=== PATIENT | male | born 1950 | race Caucasian/White ===

== ENCOUNTER 2019-04-22 10:32 | Emergency (ER) | payer MEDICARE ==
[~2019-04-22] VITALS: Ht 182.9 cm; Wt 109.1 kg
[2019-04-22 10:39] VITALS: BP 142/71; PULSE 62; TEMP 97.6
[2019-04-22] MEDS ORDERED: FLEXERIL 1010 MG/TAB PO (11:04)
[2019-04-22] MEDS ORDERED: NEURONTIN300 MG/CAP PO (11:04)
[2019-04-22] MEDS ORDERED: LASIX 20MG TABL20 MG PO (11:05)
[2019-04-22] MEDS ORDERED: CELEXA 20MG20 MG/TAB (11:06)
== END 2019-04-22 11:37 | disposition home or self-care (01) ==
LOC: COL.ER 10:32
DX: M54.5 Low back pain (principal); I10 Essential (primary) hypertension
CPT/HCPCS: J1885

== ENCOUNTER → 2019-10-09 | Outpatient (CLI) | payer MEDICARE ==
[~2019-10-09] MED LIST: CELEXA 20MG20 MG/TAB; FLEXERIL 1010 MG/TAB PO; LASIX 20MG TABL20 MG PO; NEURONTIN300 MG/CAP PO
[2019-10-09 14:50] LABS: BASO # 0.1 (0.0-0.2); BASO % 0.9 % (0.0-2.0); EOS # 0.4 (0.0-0.7); EOS % 5.6 % (0-4.0); GRAN # 3.8 (1.4-6.5); HEMOGLOBIN 13.4 g/dl (13.5-18.0); LYMPH # 1.7 (1.2-3.4); LYMPH % 25.6 % (20.0-51.0); MEAN CELL VOLUME 95 fl (80.0-100.0); MEAN CORPUSCULAR HEMOGLOBIN 32 pg (27.0-31.0); MEAN CORPUSCULAR HGB CONC 34 g/dl (33.0-37.0); MEAN PLATELET VOLUME 9.6 fl (7.4-10.4); MONO # 0.8 (0.1-0.6); MONO % 11.6 % (1.7-9.3); PLATELET COUNT 192 K/mm3 (130-400); RED BLOOD COUNT 4.21 M/mm3 (4.20-5.60); REDCELL DISTRIBUTION WIDTH-CV 12.5 % (11.5-14.5)
[2019-10-09 15:00] LABS: ALBUMIN 4.2 gm/dL (3.5-5.0); BILIRUBIN,TOTAL 0.8 mg/dL (0.0-1.0); CALCIUM 9.6 mg/dL (8.4-10.2); CREATININE, serum 0.72 (0.66-1.25); POTASSIUM 4.1 mmol/L (3.4-5.0)
== END ==
LOC: COL.LAB 14:28
DX: R60.9 Edema, unspecified (principal)

== ENCOUNTER 2021-02-17 10:41 | Emergency (ER) | payer MEDICARE ==
[~2021-02-17] VITALS: Ht 182.9 cm; Wt 120.9 kg
[2021-02-17 10:53] VITALS: TEMP 98.3
[2021-02-17] MEDS ORDERED: ASPIRIN 81M81 MG/TA2 PO (11:13)
[2021-02-17] MEDS ORDERED: VITAMIND3 5000 PO (11:14)
[2021-02-17] MEDS ORDERED: VITAMIN B125000 MCG PO (11:14)
[2021-02-17] MEDS ORDERED: CELEXA 20MG20 MG/TAB PO (11:15)
[2021-02-17] MEDS ORDERED: CENTRUM SILVER1 CTB PO (11:15)
[2021-02-17] MEDS ORDERED: MAG-OX 400400 MG/TAB PO (11:16)
[2021-02-17] MEDS ORDERED: EUTHYROX25 MCG PO (11:16)
[2021-02-17] MEDS ORDERED: ARICEPT 5MG (11:16)
[2021-02-17] MEDS ORDERED: NAMENDA 10MG TA10 MG (11:17)
[2021-02-17] MEDS ORDERED: KLOR-CON20 MEQ PO (11:17)
[2021-02-17] MEDS ORDERED: IMITREX100 MG PO (11:17)
[2021-02-17 11:39] LABS: BASO # 0.1 K/mm3 (0.0-0.2); BASO % 0.8 % (0.0-2.0); EOS # 0.1 K/mm3 (0.0-0.7); EOS % 2.2 % (0-4.0); GRAN % 63.9 % (42.2-75.2); HEMATOCRIT 41.3 % (42.0-52.0); HEMOGLOBIN 13.9 g/dl (13.5-18.0); LYMPH # 1.4 K/mm3 (1.2-3.4); LYMPH % 22.6 % (20.0-51.0); MEAN CELL VOLUME 95 fl (80.0-100.0); MEAN CORPUSCULAR HEMOGLOBIN 32 pg (27.0-31.0); MEAN CORPUSCULAR HGB CONC 34 g/dl (33.0-37.0); MEAN PLATELET VOLUME 9.9 fl (7.4-10.4); MONO # 0.6 K/mm3 (0.1-0.6); MONO % 10.2 % (1.7-9.3); PLATELET COUNT 230 K/mm3 (130-400); RED BLOOD COUNT 4.33 M/mm3 (4.20-5.60); REDCELL DISTRIBUTION WIDTH-CV 12.5 % (11.5-14.5)
[2021-02-17 12:01] LABS: C-REACTIVE PROTEIN 0.05 mg/dL (0.00-0.50)
[2021-02-17 12:03] LABS: ERYTHROCYTE SEDIMENTATION RATE 18 mm/hr (0-30)
[2021-02-17 12:06] LABS: ALBUMIN 3.8 gm/dL (3.4-4.8); CALCIUM 9.9 mg/dL (8.4-10.2); CREATININE, serum 0.85 mg/dL (0.72-1.25); POTASSIUM 3.9 mmol/L (3.5-4.5); TOTAL PROTEIN 6.6 gm/dL (6.2-8.1)
[2021-02-17 13:28] LABS: BILIRUBIN,TOTAL 0.6 mg/dL (0.2-1.2)
[2021-02-17 14:42] VITALS: BP 114/71; PULSE 54
== END 2021-02-17 14:42 | disposition home or self-care (01) ==
LOC: COL.ER 10:41
PROVIDERS: Nurse Practitioner
DX: R51.9 Headache, unspecified (principal); Z87.891 Personal history of nicotine dependence
CPT/HCPCS: J1200; J1885; J2765; J7030; Q9967

== ENCOUNTER → 2021-03-17 | Outpatient (CLI) | payer MEDICARE ==
[~2021-03-17] MED LIST changes: +ARICEPT 5MG; +ASPIRIN 81M81 MG/TA2 PO; +CELEXA 20MG20 MG/TAB PO; +CENTRUM SILVER1 CTB PO; +EUTHYROX25 MCG PO; +IMITREX100 MG PO; +KLOR-CON20 MEQ PO; +MAG-OX 400400 MG/TAB PO; +NAMENDA 10MG TA10 MG; +VITAMIN B125000 MCG PO; +VITAMIND3 5000 PO
== END ==
LOC: COL.CARD 09:23
DX: G43.009 Migraine without aura, not intractable, without status migrainosus (principal); F03.91 Unspecified dementia, unspecified severity, with behavioral disturbance

== ENCOUNTER 2021-04-21 12:45 | Outpatient (RCR) | payer MEDICARE | END 2021-04-23 | disposition home or self-care (01) | LOC: WSST | DX: F03.91 Unspecified dementia, unspecified severity, with behavioral disturbance (principal); G43.009 Migraine without aura, not intractable, without status migrainosus; Z86.69 Personal history of other diseases of the nervous system and sense organs ==

== ENCOUNTER 2021-05-05 09:22 | Outpatient (RCR) | payer MEDICARE | END 2021-05-24 | disposition home or self-care (01) | LOC: WSST | DX: G43.009 Migraine without aura, not intractable, without status migrainosus (principal); F03.91 Unspecified dementia, unspecified severity, with behavioral disturbance; Z86.69 Personal history of other diseases of the nervous system and sense organs ==

== ENCOUNTER 2021-06-16 11:15 | Outpatient (RCR) | payer MEDICARE | END 2021-06-21 | disposition home or self-care (01) | LOC: WSST | DX: R41.841 Cognitive communication deficit (principal); F03.91 Unspecified dementia, unspecified severity, with behavioral disturbance; G43.009 Migraine without aura, not intractable, without status migrainosus ==

== ENCOUNTER 2021-08-09 13:00 | Outpatient (RCR) | payer MEDICARE | END 2021-08-21 | disposition home or self-care (01) | LOC: WSST | DX: R41.841 Cognitive communication deficit (principal); G43.009 Migraine without aura, not intractable, without status migrainosus; F03.91 Unspecified dementia, unspecified severity, with behavioral disturbance; Z86.69 Personal history of other diseases of the nervous system and sense organs ==

== ENCOUNTER 2021-09-07 13:00 | Outpatient (RCR) | payer MEDICARE | END 2021-09-21 | disposition home or self-care (01) | LOC: WSST | DX: R41.841 Cognitive communication deficit (principal); F03.91 Unspecified dementia, unspecified severity, with behavioral disturbance; G43.009 Migraine without aura, not intractable, without status migrainosus; Z86.69 Personal history of other diseases of the nervous system and sense organs ==

== ENCOUNTER → 2021-09-23 | Outpatient (CLI) | payer MEDICARE | LOC: COL.VAS 11:29 | DX: M79.661 Pain in right lower leg (principal) ==

== ENCOUNTER 2021-10-19 13:00 | Outpatient (RCR) | payer MEDICARE | END 2021-10-21 | disposition home or self-care (01) | LOC: WSST | DX: R41.841 Cognitive communication deficit (principal); F03.91 Unspecified dementia, unspecified severity, with behavioral disturbance ==

== ENCOUNTER 2021-11-04 14:30 | Outpatient (RCR) | payer MEDICARE | END 2021-11-21 | disposition home or self-care (01) | LOC: WSST | DX: R41.841 Cognitive communication deficit (principal); F03.91 Unspecified dementia, unspecified severity, with behavioral disturbance; G43.909 Migraine, unspecified, not intractable, without status migrainosus ==

== ENCOUNTER → 2022-06-28 | Outpatient (CLI) | payer MEDICARE | LOC: COL.RAD 08:50 | DX: N28.1 Cyst of kidney, acquired (principal); R93.1 Abnormal findings on diagnostic imaging of heart and coronary circulation | CPT/HCPCS: Q9967 ==